=== PATIENT | male | born 1945 | race Caucasian/White ===

== ENCOUNTER 2017-11-29 01:03 | Day surgery (SDC) | payer MEDICARE, OTHER ==
[2017-11-29] VITALS (7 sets, daily range): BP systolic 109–146; BP diastolic 68–88
[~2017-11-29] VITALS: Ht 175.3 cm; Wt 122.0 kg
[~2017-11-29 01:03] MED LIST: ASPI-1471 PO; HYDR-2966 PO; METF-450 PO; SIMV-54 PO
[2017-11-29] MEDS ORDERED: LIDOCAINE/SOD BICARB 8.4% SYR ID ONE (06:00)
[2017-11-29] MEDS ORDERED: MIDAZOLAM 2 MG/2 ML VIAL IVP PRN (06:00)
[2017-11-29] MEDS ORDERED: ceFAZolin(*) 2GM/D5W 50ML 50 ML IVPB ONE (06:00)
[2017-11-29] MEDS ORDERED: FAMOTIDINE 20 MG TAB PO ONE (06:00)
[2017-11-29] MEDS ORDERED: CELECOXIB 200 MG CAP PO ONE (06:00)
[2017-11-29] MEDS ORDERED: NORMOSOL R SOLN(*) 1000 ML BAG 1,000 ML IV PRN (06:00)
[2017-11-29] MEDS ORDERED: DEXAMETHASONE SOD 4 MG/ML VIAL ONE (06:27)
[2017-11-29] MEDS ORDERED: LIDOCAINE MPF 1% 5 ML VIAL ONE (06:27)
[2017-11-29] MEDS ORDERED: ONDANSETRON 4 MG/2 ML VIAL ONE (06:27)
[2017-11-29] MEDS ORDERED: PROPOFOL EMUL(*) 10MG/ML 20 ML 40 ML ONE (06:27)
[2017-11-29] MEDS ORDERED: KETAMINE HCL 200 MG/20 ML MDV ONE (06:29)
[2017-11-29] MEDS ORDERED: LIDOCAINE 2% JELLY 5 ML TUBE ONE (06:32)
[2017-11-29] MEDS ORDERED: ROPIVACAINE 0.2% 20 ML VIAL ONE (06:33)
[2017-11-29] MEDS ORDERED: fentaNYL CITR 250 MCG/5 ML AMP ONE (06:42)
[2017-11-29] MEDS ORDERED: NS 0.9% 20 ML SDV 20 ML ONE (07:01)
[2017-11-29] MEDS ORDERED: KETOROLAC 30 MG/ML VIAL ONE (08:04)
[2017-11-29] MEDS ORDERED: HYDR-653 PO (08:34)
[2017-11-29] MEDS ORDERED: LABETALOL HCL 100 MG/20ML VIAL ONE ×2 (08:36→08:49)
--- NOTE | 2017-11-30 08:52 | OPERATIVE REPORT 1 ---
EVENT DATE: November 29, 2017 SURGEON: Samantha Umaña MD ANESTHESIOLOGIST: Jarrod Snyder M.D. ANESTHESIA: General LMA. BOAT REPAIRER: CRISTHIAN Green, INJECTION MOLDING MACHINE SETTER PREOPERATIVE DIAGNOSIS Left distal radius fracture, which was comminuted intraarticular, greater in three part. POSTOPERATIVE DIAGNOSIS Left distal radius fracture, which was comminuted intraarticular, greater in three part. PROCEDURE PERFORMED Open reduction and internal fixation of left distal radius fracture, which was comminuted in intra-articular and greater in three parts. FINDINGS The patient has a comminuted and displaced distal radius fracture with very soft bone but was amenable for fixation. ESTIMATED BLOOD LOSS Minimal. DRAINS None. COMPLICATIONS None. DRAINS None. COMPLICATIONS None. IMPLANTS [employer] left three-hole standard plate with two high compression locking screws, locking pegs and 3.5 nonlocking shaft screws TOURNIQUET TIME About 50 minutes. SPECIMENS None. INDICATIONS AND HISTORY This patient is a 71-year-old male who presented to my clinic for evaluation of a left distal radius fracture. He had fallen off the ladder and landed on his left wrist and had a comminuted intra-articular distal radius fracture. He presented to my clinic Tuesday and we got him set up to do the operative case today, November 29, 2017. After discussing the risks and benefits, informed consent was obtained at the last clinic visit. He understood that it may not give him full relief and he may have stiffness and problems long-term associated with it. DESCRIPTION OF PROCEDURE The patient was brought into the operating room. He and the procedure were both verified. He was placed supine on the operative table and induced intubated by anesthesia. The left upper extremity was then prepped and draped in the usual fashion and a time-out was observed, verifying the correct patient and procedure. After going through a volar Drake approach, I was then able to go down through the skin and subcutaneous tissue and identify the flexor carpi radialis. I then retracted this to the radial side and went down through the traumatized tissue to get to the comminuted intra-articular distal radius fracture. Once I found the distal radius fracture was very thin and highly comminuted in the area, worse than the x-ray indicated, and it was dorsally angulated, I was able to pin it in place initially by performing reduction maneuvers and then pinning through the radial styloid and then pinning the distal portion. Once I got it pinned into decent position, I then utilized C-arm images and then also the [employer] three-hole plate in order to realign the fracture itself and realign the joint surface. Once the joint surface looked significantly better, I was then able to place two screws into the ulnar corner and was able to fix this in place. I then put a third screw in this area in order to lock it in place. I used the high compression screw initially just to pull the plate down to the fracture itself. I then put in one shaft screw and then took C-arm images. Everything was well aligned except for the radial styloid so, therefore, we finished fixing the ulnar corner as well as the shaft with all the screws and then took the pin out of the radial styloid. Once I took the pin out of the radial styloid, I then was unable to reduce it manually back to where the articular surface was well reduced and then I put two distal screws in on the radial styloid piece and then I was able to take C-arm images to verify there were in great position and then put the radial styloid home run screw on the far radial side. Everything then had good fixation and there was no signs of problems or issues. The wrist moved excellently in all directions and the C-arm images looked very good so therefore this was the final construct chosen. The wound was then irrigated with a copious amount of saline and then closed with 3- 0 Vicryl just over the FCR and 3-0 Vicryl in the subcutaneous tissue and 4-0 Nylon in the skin in interrupted mattress type fashion. It was then anesthetized with ropivacaine and dressed with Xeroform gauze, 4x4s and some soft dressing followed by a clamshell splint. The patient was then awakened and extubated and transferred to PACU in stable condition after the tourniquet was let down after about 15 minutes. <Electronically signed by SAMANTHA UMAÑA MD> D/ 00 3 3 MANDY/AAMIR CC: [facility]; ASMANTHA UMAÑA MD [facility]
== END 2017-11-29 09:37 | disposition home or self-care (01) ==
LOC: OR 01:03
PROVIDERS: ATTEND Orthopaedic Surgery
DX: S52.572A Other intraarticular fracture of lower end of left radius, initial encounter for closed fracture (principal); E11.9 Type 2 diabetes mellitus without complications
CPT/HCPCS: 25609; 36416; 82948; A9270; C1713; J1100; J1885; J2001; J2405; J2704; J2795; J3010; J3490; J7050; J0690